=== PATIENT | male | born 1990 | race Two or more races ===

== ENCOUNTER → 2017-01-25 | Outpatient (CLI) | payer OTHER ==
[2015-04-15 15:20] VITALS: BP 123/74
[~2017-01-25] MED LIST: ACET1TAB33 PO; CIPR500T94 PO; ONDA4TAB11 PO; OXYC-327 PO; TAMS0.4C2 PO
--- NOTE | 2017-01-25 10:32 | RAD ---
KUB, 01/25/2017: History: Renal stone Comparison is made to a study from 04/13/2016. The abdominal gas pattern is unremarkable. There is a small unchanged radiopacity projected over the left mid kidney compatible with an intrarenal calculus. The patient's known tiny right intrarenal calculi are not visible radiographically. A lower pelvic calcification on the left is unchanged and is probably a phlebolith. There is no evidence of organomegaly. No new abnormality is detected. IMPRESSION: 1. Unchanged small left intrarenal calculus. 2. No acute abnormality is detected.
== END | disposition home or self-care (01) ==
LOC: RAD 10:05
PROVIDERS: ATTEND Urology
DX: N20.0 Calculus of kidney (principal)
CPT/HCPCS: 74000